=== PATIENT | female | born 1965 | race Caucasian/White ===

== ENCOUNTER → 2017-05-12 | Outpatient (CLI) | payer MEDICAID ==
[~2017-05-12] MED LIST: AMIT10TA PO; ESCI20TA10 PO; HYDR-3240 PO; HYDR25TA11 PO; LIOT25TA10 PO; NAPR500T4 PO; RANI300T PO
== END | disposition home or self-care (01) ==
LOC: CFH 08:05
PROVIDERS: ATTEND Internal Medicine
DX: M19.012 Primary osteoarthritis, left shoulder (principal); M75.102 Unspecified rotator cuff tear or rupture of left shoulder, not specified as traumatic; M75.52 Bursitis of left shoulder

== ENCOUNTER → 2020-06-17 | Outpatient (CLI) | payer MEDICAID ==
[~2020-06-17] MED LIST changes: +HYDR-1067 PO; -HYDR-3240 PO; +HYDR-826 PO; -HYDR25TA11 PO; +NAPR-685 PO; -NAPR500T4 PO
== END | disposition home or self-care (01) ==
LOC: CFH 10:26
PROVIDERS: ATTEND Internal Medicine
DX: Z12.31 Encounter for screening mammogram for malignant neoplasm of breast (principal); M81.0 Age-related osteoporosis without current pathological fracture; M85.80 Other specified disorders of bone density and structure, unspecified site
CPT/HCPCS: 77067; 77080